=== PATIENT | female | born 1990 | race Caucasian/White ===

== ENCOUNTER 2023-11-10 12:04 | Outpatient (CLI) | payer OTHER ==
--- NOTE | 2023-11-10 13:41 | XRAY Report ---
PROCEDURE: Finger(s) LT INDICATIONS: CONTUSION OF LEFT INDEX FINGER WITH DAMAGE TO NAIL TECHNIQUE: AP hand, 2 views of the left second finger(s) acquired. COMPARISON: None. FINDINGS: Bones: No fractures or dislocations. No suspicious bony lesions. Soft tissues: No suspicious soft tissue calcifications or masses. IMPRESSION: No acute bony abnormality. If pain persists with conservative management, consider repeat radiographs in 10-14 days or cross-sectional imaging. Reviewed by: Saskia Enriquez MD on 11/10/2023 1:40 PM PST Approved by: Saskia Enriquez MD on 11/10/2023 1:40 PM [facility] Station ID: [id number]
== END 2023-11-10 12:05 | disposition home or self-care (01) ==
LOC: DI 12:04
PROVIDERS: ATTEND Physician Assistant Medical
DX: S60.122A Contusion of left index finger with damage to nail, initial encounter (principal)

== ENCOUNTER 2024-06-12 11:56 | Outpatient (CLI) | payer OTHER ==
--- NOTE | 2024-06-12 15:27 | Ultrasound Report ---
PROCEDURE: Renal (Retroperitoneal) INDICATIONS: URINARY HESITANCY TECHNIQUE: Real-time scanning was performed of the retroperitoneal organs, with image documentation. COMPARISON: None. FINDINGS: Kidneys: Kidneys are normal in size. Right kidney measures 9.8 cm long; left kidney measures 11.1 c m long. Right renal cortical thickness is 1.9 cm; left renal cortical thickness is 1.4 cm. No solid masses, hydronephrosis, or nephrolithiasis. Bladder: Pre-void bladder volume is 679 mL. Post-void residual is 0 mL. Pre-void images demonstrat e no intraluminal masses or stones. On pre-void images, no ureteral jets are noted with color Dopple r interrogation. (Of note, ureteral jets may not be detectable in up to 25% of cases due to insuffic ient differences in specific gravity between ureteral and bladder urine). Miscellaneous: No free abdominal fluid. IMPRESSION: Normal renal ultrasound. No significant post void residual bladder volume. Reviewed by: Raza Bowers MD on 06/12/2024 3:25 PM PDT Approved by: Raza Bowers MD on 06/12/2024 3:25 PM PDT Station ID: [id number]
== END 2024-06-12 11:57 | disposition home or self-care (01) ==
LOC: DI 11:56
PROVIDERS: ATTEND Family Medicine
DX: R39.11 Hesitancy of micturition (principal); R39.89 Other symptoms and signs involving the genitourinary system; N32.89 Other specified disorders of bladder